=== PATIENT | female | born 2005 | race Caucasian/White ===

== ENCOUNTER 2025-04-19 10:25 | Emergency (ER) | payer OTHER ==
[~2025-04-19] VITALS: Ht 162.6 cm; Wt 59.7 kg
[2025-04-19 11:22] LABS: KETONE, URINE AUTO RFX TRACE mg/dL (NEGATIVE); MUCUS, URINE RFX SMALL (NEGATIVE); NITRITE, URINE AUTO RFX NEGATIVE (NEGATIVE); RBC, URINE AUTO RFX TNTC /HPF (0-3); SQUAM EPITHELIAL CELL UR AURFX 6 /HPF (0-6); YEAST LIKE CELL URINE AUTO RFX SMALL
[2025-04-19 11:51] LABS: LEUKOCYTE ESTERASE UR AUTO RFX 2+ (NEGATIVE); WBC, URINE AUTO RFX TNTC /HPF (0-3)
[2025-04-19] MEDS ORDERED: SULF-7 PO (13:34)
[2025-04-19] MEDS ORDERED: PYRI1TAB5 PO (13:39)
[2025-04-19] MEDS: PHENAZOPYRIDINE 100 MG TAB PO ONE (13:44)
[2025-04-19 13:48] VITALS: BP 110/64; TEMP 98; O2SAT 100
== END 2025-04-19 13:51 | disposition home or self-care (01) ==
LOC: M ED 10:25
DX: N39.0 Urinary tract infection, site not specified (principal); F17.290 Nicotine dependence, other tobacco product, uncomplicated; F10.10 Alcohol abuse, uncomplicated; Z88.0 Allergy status to penicillin; Z88.1 Allergy status to other antibiotic agents; Z91.040 Latex allergy status; Z79.2 Long term (current) use of antibiotics